=== PATIENT | female | born 1970 | race African-American/Black ===

== ENCOUNTER 2025-02-13 10:38 | Outpatient (CLI) | payer OTHER, MEDICAID | END 2025-02-13 10:39 | disposition home or self-care (01) | LOC: CSHRAD 10:38 | PROVIDERS: ATTEND Surgery | DX: K21.9 Gastro-esophageal reflux disease without esophagitis (principal); R13.19 Other dysphagia; K22.2 Esophageal obstruction | CPT/HCPCS: 74220 ==